=== PATIENT | female | born 1945 | race Caucasian/White ===

== ENCOUNTER 2017-10-11 12:56 | Emergency (ER) | payer OTHER ==
[~2017-10-11] VITALS: Ht 157.5 cm; Wt 52.0 kg
[2017-10-11 13:33] VITALS: BP 209/100; PULSE 118; RESP 26; TEMP 98.9; O2SAT 98
[2017-10-11] MEDS ORDERED: CYMB60CA PO (13:38)
[2017-10-11] MEDS ORDERED: LAMO25 PO (13:38)
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
[2017-10-11 15:06] LABS: AUTOMATED NEUTROPHIL # 4.5 TH/MM3 (1.8-7.7); BASOPHIL % 0.5 % (0.0-2.0); EOSINOPHIL # 0.1 TH/MM3 (0-0.4); EOSINOPHIL % 0.9 % (0.0-4.0); HEMATOCRIT 40.5 % (35.0-46.0); HEMOGLOBIN 14.5 GM/DL (11.6-15.3); LYMPH % 27.4 % (9.0-44.0); LYMPHOCYTE # 1.9 TH/MM3 (1.0-4.8); MEAN CELL VOLUME 90.8 FL (80.0-100.0); MEAN CORPUSCULAR HEMOGLOBIN 32.6 PG (27.0-34.0); MEAN CORPUSCULAR HGB CONC 35.8 % (32.0-36.0); MEAN PLATELET VOLUME 7.3 FL (7.0-11.0); MONO % 5.4 % (0.0-8.0); MONOCYTE # 0.4 TH/MM3 (0-0.9); NEUT % 65.8 % (16.0-70.0); PLATELET COUNT 249 TH/MM3 (150-450); RED BLOOD COUNT 4.45 MIL/MM3 (4.00-5.30); RED CELL DISTRIBUTION WIDTH 12.9 % (11.6-17.2); WHITE BLOOD COUNT 6.9 TH/MM3 (4.0-11.0)
[2017-10-11 15:21] LABS: BILIRUBIN, URINE NEG (NEG); BLOOD, URINE NEG (NEG); GLUCOSE,URINE NEG (NEG); KETONE, URINE NEG (NEG); NITRITE,URINE NEG (NEG); PH, URINE 6.5 (5.0-8.5); URINE COLOR LIGHT-YELLOW (YELLW/STRAW); URINE LEUKOCYTE ESTERASE NEG (NEG)
[2017-10-11 15:31] LABS: ALBUMIN 4.5 GM/DL (3.4-5.0); ALT (GPT) 39 U/L (10-53); AST (GOT) 35 U/L (15-37); BICARBONATE 28.5 MEQ/L (21.0-32.0); BLOOD UREA NITROGEN 7 MG/DL (7-18); CALCIUM 8.7 MG/DL (8.5-10.1); CHLORIDE 94 MEQ/L (98-107); CREATININE 0.64 MG/DL (0.50-1.00); GLOMERULAR FILTRATION RATE 92 ML/MIN (>89); GLUCOSE,RANDOM 93 MG/DL (74-106); SODIUM (NA) 130 MEQ/L (136-145)
[2017-10-11 15:41] LABS: ACETAMINOPHEN LESS THAN 2.0 MCG/ML (10.0-30.0); ALKALINE PHOSPHATASE 59 U/L (45-117); TOTAL BILIRUBIN ADULT 0.5 MG/DL (0.2-1.0); TOTAL PROTEIN 7.7 GM/DL (6.4-8.2)
[2017-10-11 17:40] VITALS: BP 199/98; PULSE 120; RESP 20; TEMP 97.8; O2SAT 98
[2017-10-11] MEDS ORDERED: hydrOXYzine PAMOATE 25 MG CAP PO ONE (17:45)
[2017-10-11] MEDS ORDERED: LORazepam 1 MG TAB PO ONE (17:45)
[2017-10-11] MEDS ORDERED: cloNIDine HCL 0.1 MG TAB PO ONE (18:45)
[2017-10-11 18:48] VITALS: BP 211/97; PULSE 118; RESP 20; O2SAT 95
[2017-10-11] MEDS ORDERED: LORazepam 2 MG/ML VIAL IM ONE (19:00)
[2017-10-11] MEDS ORDERED: ONDANSETRON ODT 4 MG TAB PO ONE (19:00)
[2017-10-11 22:37] VITALS: BP 139/80; PULSE 103; RESP 17; TEMP 98.5; O2SAT 17
[2017-10-12 02:53] VITALS: BP 177/79; PULSE 104; RESP 18; TEMP 98.6; O2SAT 96
[2017-10-12] MEDS ORDERED: LORazepam 2 MG/ML VIAL IV PUSH PRN ×3 (03:15)
[2017-10-12] MEDS ORDERED: LORazepam 1 MG TAB PO PRN (03:15)
[2017-10-12] MEDS ORDERED: ONDANSETRON ODT 4 MG TAB PO PRN (03:15)
[2017-10-12] MEDS ORDERED: ACETAMINOPHEN 325 MG TAB PO PRN (03:15)
[2017-10-12] MEDS ORDERED: FLUMAZENIL 0.5 MG/5 ML VIAL IV PUSH PRN (03:15)
[2017-10-12] MEDS ORDERED: LORazepam 2 MG TAB PO PRN (03:15)
[2017-10-12] MEDS: LORazepam 2 MG/ML VIAL IV PUSH PRN ×2 (03:20→05:43)
[2017-10-12 05:56] VITALS: BP_SYST 183; BP_SYST 188; BP_DIAS 84; BP_DIAS 87; PULSE 101; RESP 17; TEMP 97; O2SAT 99
[2017-10-12] MEDS ORDERED: LISI10TA3 PO (10:01)
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
[2017-10-12 10:13] VITALS: BP 181/99; PULSE 113; RESP 18; O2SAT 97
[2017-10-12] MEDS ORDERED: LISINOPRIL 10 MG TAB PO ONE ×2 (10:15→12:30)
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
[2017-10-12 12:15] VITALS: BP 212/103; PULSE 119; RESP 18; O2SAT 97
[2017-10-12 14:14] VITALS: BP 181/79; PULSE 104; RESP 16
== END 2017-10-12 15:40 | disposition home or self-care (01) ==
LOC: NEPJ 12:56
DX: F10.94 Alcohol use, unspecified with alcohol-induced mood disorder (principal); S00.83XA Contusion of other part of head, initial encounter; I10 Essential (primary) hypertension; V49.49XA Driver injured in collision with other motor vehicles in traffic accident, initial encounter; Y90.6 Blood alcohol level of 120-199 mg/100 ml
CPT/HCPCS: 70450; 80053; 80307; 81001; 84443; 85025; 96372; 96374; 96376; 99284; J2060; Q0177